=== PATIENT | male | born 2000 | race Two or more races ===

== ENCOUNTER 2021-12-28 12:43 | Emergency (ER) | payer MEDICAID ==
[~2021-12-28] VITALS: Ht 188 cm; Wt 68.1 kg
[2021-12-28 13:39] VITALS: BP 118/72
[2021-12-28] MEDS ORDERED: LIDOCAINE 1% HCL (LOCAL ANESTH.) INJ 20ML MDV IJ ONE (13:45)
== END 2021-12-28 14:25 | disposition home or self-care (01) ==
LOC: ER 12:43
DX: S91.311A Laceration without foreign body, right foot, initial encounter (principal); W25.XXXA Contact with sharp glass, initial encounter; Y93.89 Activity, other specified; Y92.89 Other specified places as the place of occurrence of the external cause; Y99.8 Other external cause status
CPT/HCPCS: 12002; 99282; J2001